=== PATIENT | female | born 1975 | race Caucasian/White ===

== ENCOUNTER 2017-02-01 15:16 | Emergency (ER) | payer SELFPAY ==
[~2017-02-01 15:16] MED LIST: ASPI81TA82 PO
[2017-02-01 15:23] VITALS: BP 147/99; PULSE 105; RESP 16; TEMP 99; O2SAT 95
--- NOTE | 2017-02-01 15:27 | PD ---
HPI Chief Complaint: Anxiety Time Seen by Provider: 15:21 Travel History International Travel<30 days: No Contact w/Intl Traveler<30days: No History of Present Illness HPI 41-year-old female with history of generalized anxiety disorder and panic attacks here with complaint of same. Patient has history of chronic anxiety and is supposed to take Prozac, Xanax. She stopped her Prozac 1 week ago, stating that it really wasn't helping. She sees Dr. Parker, who also prescribed her BuSpar. She states that she took one dose of this and didn't like the way it made her feel, slightly nauseous and therefore she stopped it. Patient notes significant recent psychosocial stressors in that her mother 1 week ago today. Patient is supposed to get her cremated ashes today. Approximately 1.5 hours prior to arrival patient became anxious, noting palpitations, sense of impending doom and that the world was closing in on her, similar to her previous anxiety attack. She took a dose of her Xanax, and drink 1 beer without improvement prompting ER visit. She called EMS, normal 12- lead, blood glucose en route, stable. PFSH Past Medical History Anxiety: Yes Cancer: No Cardiovascular Problems: No Cerebrovascular Accident: Yes (CVA) Diminished Hearing: No Genitourinary: No Implanted Vascular Access Dvce: No Musculoskeletal: No Neurologic: No Psychiatric: No Reproductive: No Respiratory: No : 1 Para: 1 Past Surgical History Ear Surgery: Yes (RIGHT A 5TH GRADE CHILD) Social History Alcohol Use: Yes (2-4 BEERS A NIGHT) Tobacco Use: Yes (1/2 PPD) Substance Use: No Allergies-Medications (Allergen,Severity, Reaction): Coded Allergies: No Known Allergies (Unverified , 03/20/16) Reported Meds & Prescriptions Reported Meds & Active Scripts Active Reported Aspir-81 (Aspirin) 81 Mg Tab 81 Mg PO ONCE Review of Systems Except as stated in HPI: all other systems reviewed are Neg Physical Exam Narrative GENERAL: Anxious tearful thin female SKIN: Focused skin assessment warm/dry. HEAD: Normocephalic. EYES: No scleral icterus. No injection or drainage. ENT Mucous membranes pink and moist. NECK: Supple CARDIOVASCULAR: Regular rate and rhythm. No murmur appreciated. RESPIRATORY: No accessory muscle use. Clear to auscultation. Breath sounds equal bilaterally. GASTROINTESTINAL: Abdomen soft, non-tender, nondistended. MUSCULOSKELETAL: No obvious deformities. No edema. NEUROLOGICAL: Awake and alert. Normal speech. PSYCHIATRIC: Anxious, tearful Data Data Orders Lorazepam Inj (Ativan Inj) (02/01/17 15:30) [facility] Medical Decision Making Medical Screen Exam Complete: Yes Emergency Medical Condition: Yes Medical Record Reviewed: Yes Differential Diagnosis 41-year-old female with history of generalized anxiety disorder and panic attack here with complaint of same. Symptoms likely acute on chronic due to her medication nonadherence and recent psychosocial stressors with the of her mother. Narrative Course Patient given 1 mg Ativan with improvement of her symptoms. She was reassured and encouraged to follow up with outpatient psychiatry and given resources for same. Encouraged to continue to take her Prozac, Xanax as prescribed. Grief counseling as discussed. Diagnosis Primary Impression: Panic attack Additional Impressions: Adjustment reaction Qualified Code: F43.22 - Adjustment disorder with anxious mood Anxiety Referrals: Devyn Parker MD call for appointment [facility] call for appointment Additional Instructions: Continue Prozac and Xanax as prescribed. Follow up with outpatient psychiatric resources and/or Dr. Parker as discussed. Consider grief/loss counseling. Med/Other Pt SpecificInfo: No Change to Meds Disposition: 01 DISCHARGE HOME Condition: Stable Lacey Shaver MD Feb 01, 2017 15:27
[2017-02-01] MEDS ORDERED: ALPR.25 PO (15:28)
[2017-02-01] MEDS ORDERED: TRAZ50TA12 PO (15:28)
[2017-02-01] MEDS ORDERED: LORazepam 2 MG/ML VIAL IV PUSH ONE (15:30)
== END 2017-02-01 16:09 | disposition home or self-care (01) ==
LOC: PHED 15:16
DX: F41.0 Panic disorder [episodic paroxysmal anxiety] (principal); F43.22 Adjustment disorder with anxiety; Z86.73 Personal history of transient ischemic attack (TIA), and cerebral infarction without residual deficits; F17.200 Nicotine dependence, unspecified, uncomplicated
CPT/HCPCS: 96374; 99284; J2060

== ENCOUNTER 2017-09-05 10:54 | Emergency (ER) | payer SELFPAY ==
[~2017-09-05] VITALS: Ht 190.5 cm; Wt 58.0 kg
[~2017-09-05 10:54] MED LIST changes: +ALPR.25 PO; -ASPI81TA82 PO; +TRAZ50TA12 PO
[2017-09-05 10:58] VITALS: BP 154/92; PULSE 138; RESP 20; TEMP 97.8; O2SAT 98
--- NOTE | 2017-09-05 11:31 | PD ---
HPI Chief Complaint: Cold / Flu Symptoms Time Seen by Provider: 11:22 Travel History International Travel<30 days: No Contact w/Intl Traveler<30days: No Traveled to known affect area: No History of Present Illness HPI Patient is complaining of cough, congestion, sore throat, subjective fevers ongoing for 4 days. Patient states the cough was nonproductive until today when she started coughing up some phlegm. Denies any known sick contacts. Denies anything making symptoms worse. Patient states when she woke today having a burning sensation in her throat and chest that has since improved. Denies any radiation of the pain. Patient will use [id number] cold and flu medication for symptomatic relief. Patient reports history of tachycardia secondary to her anxiety and stress. Patient states she has not taken Xanax for this however she is not does not take it regularly. Patient states she feels very stressed right now but denies any palpitations or chest pain. PFSH Past Medical History Anxiety: Yes Cancer: No Cardiovascular Problems: No Cerebrovascular Accident: Yes (CVA) Diminished Hearing: No Genitourinary: No Implanted Vascular Access Dvce: No Musculoskeletal: No Neurologic: No Psychiatric: No Reproductive: No Respiratory: No Tetanus Vaccination: Unknown Influenza Vaccination: No ?: Not : 1 Para: 1 Past Surgical History Ear Surgery: Yes (RIGHT A 5TH GRADE CHILD) Other Surgery: Yes Social History Alcohol Use: Yes (2-4 BEERS A NIGHT) Tobacco Use: Yes (1/2 PPD) Substance Use: No Allergies-Medications (Allergen,Severity, Reaction): Coded Allergies: No Known Allergies (Unverified Adverse Reaction, Unknown, 09/05/17) Reported Meds & Prescriptions Reported Meds & Active Scripts Active Prednisone 20 Mg Tab 20 Mg PO BID 4 Days Tessalon Perles (Benzonatate) 100 Mg Cap 200 Mg PO TID PRN Ventolin Hfa 18 GM Inh (Albuterol Sulfate) 90 Mcg/Act Aer 2 Puff INH Q4H PRN Reported Xanax (Alprazolam) 0.25 Mg Tab 0.25 Mg PO Q4H PRN Review of Systems Except as stated in HPI: all other systems reviewed are Neg Physical Exam Narrative GENERAL: Well-developed, well nourished, in no acute distress, and non-ill appearing. SKIN: Focused skin assessment warm and dry. HEAD: Atraumatic. Normocephalic. EYES: Pupils equal and round. EOMI. No scleral icterus. No injection or drainage. ENT: No nasal bleeding or discharge. Mucous membranes pink and moist. Tympanic membranes pearly mckeon bilaterally. Posterior pharynx mild erythematous without exudate. Uvula is midline. Reports tenderness frontal sinus bilaterally. Swallowing own saliva and speaking in full sentences without difficulty. NECK: Trachea midline. No JVD. No cervical lymphadenopathy. Supple. No nuclear rigidity. CARDIOVASCULAR: Tachycardia rate and regular rhythm. No murmur appreciated. RESPIRATORY: No accessory muscle use. No respiratory distress. Clear to auscultation. Breath sounds equal bilaterally. MUSCULOSKELETAL: No obvious deformities. No clubbing. No cyanosis. No edema. Full range of motion. NEUROLOGICAL: Awake and alert. No obvious cranial nerve deficits. Motor grossly within normal limits. Normal speech. PSYCHIATRIC: Appropriate mood and affect; insight and judgment normal. Data Data Last Documented VS Vital Signs Date Time Temp Pulse Resp B/P (MAP) Pulse Ox O2 Delivery O2 Flow Rate FiO2 09/05/17 12:50 98 20 112/74 (87) 96 09/05/17 10:58 97.8 Orders Orders Influenzae A/B Antigen (09/05/17 11:27) Group A Rapid Strep Screen (09/05/17 11:27) Chest, Single Ap (09/05/17 ) Electrocardiogram (09/05/17 ) Strep Culture (Group A) (09/05/17 11:30) Ed Discharge Order (09/05/17 12:27) [facility] Medical Decision Making Medical Screen Exam Complete: Yes Emergency Medical Condition: Yes Interpretation(s) EKG reviewed by Dr. Garcia shows sinus rhythm with ventricular rate of 102. No STEMI. Differential Diagnosis Influenza, strep pharyngitis, viral pharyngitis, pneumonia, arrhythmia, URI, viral syndrome, bronchitis Narrative Course Patients symptom complex of cough and congestion is consistent with viral URI. The patient is non-ill appearing and is in no respiratory distress and comfortable. The patient moves air well and oxygen saturations are normal. There is no clinical evidence to suggest pneumonia at this time. Plan of care and management were discussed with the patient who agreed with plan. The patient was instructed to follow up with their physician and instructed to return if worsens, progressively worsening shortness of breath or difficulty breathing, persistent fever, chest pains or discomfort, inability to keep medication or fluids down with or without vomiting, or as needed. Patient in no obvious distress upon re-evaluation. All pertinent laboratory/ Radiology result(s) discussed with patient. Patient was asked if they wanted to speak to my attending, which the patient did not wish to do at this time. Any questions/concerns in reference to patient diagnosis/condition discussed and clarified prior to patient's discharge. Reinforced sheer importance of close follow up with patient's primary physician or primary care clinic. Instructed patient to return to ED immediately, if symptoms return/worsen. Patient showed understanding of above instructions. Further instructions and recommendations were detailed in discharge paperwork. Patient ambulated without difficulty out of ED at discharge. Diagnosis Primary Impression: URI with cough and congestion Referrals: [facility] Patient Instructions: General Instructions, Upper Respiratory Infection (ED) Additional Instructions: Follow-up with your primary care physician in 3-5 days for reevaluation. Take all medication as prescribed. Complaining of non-caffeinated nonalcoholic fluids. Use [id number] Tylenol and/or ibuprofen as needed for pain and/ or fever. Return to the emergency department if symptoms get worse. Med/Other Pt SpecificInfo: Prescription(s) given Scripts Prednisone (Prednisone) 20 Mg Tab 20 MG PO BID for 4 Days, #8 TAB 0 Refills Prov: Jj Barraza MD 09/05/17 Benzonatate (Tessalon Perles) 100 Mg Cap 200 MG PO TID Y for COUGH, #30 CAP 0 Refills Prov: Jj Barraza MD 09/05/17 Albuterol 18 GM Inh (Ventolin Hfa 18 GM Inh) 90 Mcg/Act Aer 2 PUFF INH Q4H Y for COUGH, #1 INHALER 0 Refills Prov: Jj Barraza MD 09/05/17 Disposition: 01 DISCHARGE HOME Condition: Stable Omid Fu Sep 05, 2017 11:31
--- NOTE | 2017-09-05 12:01 | RADRPT ---
EXAM DATE/TIME: 09/05/2017 11:48 [place] COMPARISON: No previous studies available for comparison. INDICATIONS : Cough, sore throat. MEDICAL HISTORY : None. SURGICAL HISTORY : None. ENCOUNTER: Initial ACUITY: 4 - 6 days PAIN SCORE: 0/10 LOCATION: Bilateral chest FINDINGS: A single view of the chest demonstrates the lungs to be symmetrically aerated without evidence of mas s, infiltrate or effusion. The cardiomediastinal contours are unremarkable. Osseous structures are intact. A left nipple shadow is present. CONCLUSION: No acute disease. There is no evidence of pneumonia. Noel Worthington MD on September 05, 2017 at 11:57 Board Certified Radiologist. This report was verified electronically.
[2017-09-05] MEDS ORDERED: PRED20 PO (12:28)
[2017-09-05] MEDS ORDERED: VENTAER INH (12:28)
[2017-09-05] MEDS ORDERED: BENZ100 PO (12:28)
[2017-09-05 12:50] VITALS: BP 112/74
--- NOTE | 2017-09-06 14:47 | EKG ---
Date Performed: 09/05/2017 Time Performed: 12:14:01 PTAGE: 42 years EKG: Sinus tachycardia NONSPECIFIC ST & T-WAVE ABNORMALITY ABNORMAL RHYTHM ECG PREVIOUS TRACING : 03/20/2016 11.19 DOCTOR: Mitchell Israel Interpretating Date/Time 09/06/2017 14:45:24
== END 2017-09-05 13:02 | disposition home or self-care (01) ==
LOC: PHEFT 10:54
DX: J06.9 Acute upper respiratory infection, unspecified (principal); F17.200 Nicotine dependence, unspecified, uncomplicated; F41.9 Anxiety disorder, unspecified; R00.0 Tachycardia, unspecified
CPT/HCPCS: 71045; 87081; 87804; 87880; 93005; 99284

== ENCOUNTER 2018-02-08 08:51 | Emergency (ER) | payer SELFPAY ==
[~2018-02-08] VITALS: Ht 190.5 cm; Wt 55.0 kg
[~2018-02-08 08:51] MED LIST changes: +BENZ100 PO; +PRED20 PO; -TRAZ50TA12 PO; +VENTAER INH
[2018-02-08 08:55] VITALS: BP 159/96; PULSE 132; RESP 16; TEMP 97.9; O2SAT 96
[2018-02-08 09:07] VITALS: BP 106/87; PULSE 105; RESP 18; O2SAT 100
--- NOTE | 2018-02-08 09:08 | PD ---
HPI Chief Complaint: GI Complaint Time Seen by Provider: 08:58 Travel History International Travel<30 days: No Contact w/Intl Traveler<30days: No Traveled to known affect area: No History of Present Illness HPI 42-year-old female presents with lower abdominal pain that is intermittent and sharp. She states she is having bowel movements but over the past week they have been hard. She states no migration of the pain. She states she does have anxiety and is off her anxiety medication as well. She denies specific modifying factors. Location is lower. Quality is sharp. Severity is moderate. She denies other associated symptoms. PFSH Past Medical History Anxiety: Yes Cancer: No Cardiovascular Problems: No Cerebrovascular Accident: Yes (CVA) Diminished Hearing: No Genitourinary: No Implanted Vascular Access Dvce: No Musculoskeletal: No Neurologic: No Psychiatric: No Reproductive: No Respiratory: No ?: Not LMP: NISHANT : 1 Para: 1 Past Surgical History Ear Surgery: Yes (RIGHT A 5TH GRADE CHILD) Other Surgery: Yes Social History Alcohol Use: Yes (2-4 BEERS A NIGHT) Tobacco Use: Yes (1/2 PPD) Substance Use: No Allergies-Medications (Allergen,Severity, Reaction): Coded Allergies: No Known Allergies (Unverified Adverse Reaction, Unknown, 02/08/18) Reported Meds & Prescriptions Reported Meds & Active Scripts Active Macrobid (Nitrofurantoin Monoh/Nitrofur Macro) 100 Mg Cap 100 Mg PO BID 5 Days Review of Systems Except as stated in HPI: all other systems reviewed are Neg Physical Exam Narrative GENERAL: 42-year-old female in no apparent distress, anxious SKIN: Focused skin assessment warm/dry. HEAD: Atraumatic. Normocephalic. EYES: Pupils equal and round. No scleral icterus. No injection or drainage. ENT: No nasal bleeding or discharge. Mucous membranes pink and moist. NECK: Trachea midline. No JVD. CARDIOVASCULAR: Tachycardic rate and regular rhythm. No murmur appreciated. RESPIRATORY: No accessory muscle use. Clear to auscultation. Breath sounds equal bilaterally. GASTROINTESTINAL: Abdomen soft, tender to palpation to the lower abdomen without rebound or guarding, nondistended. MUSCULOSKELETAL: No obvious deformities. No clubbing. No cyanosis. NEUROLOGICAL: Awake and alert. Moves all extremities. Normal speech. Data Data Last Documented VS Vital Signs Date Time Temp Pulse Resp B/P (MAP) Pulse Ox O2 Delivery O2 Flow Rate FiO2 02/08/18 09:07 105 18 106/87 (93) 100 Room Air 02/08/18 08:55 97.9 Orders Orders Complete Blood Count With Diff (02/08/18 09:02) Comprehensive Metabolic Panel (02/08/18 09:02) Urinalysis - C+S If Indicated (02/08/18 09:02) Lipase (02/08/18 09:02) Ct Abd/Pel W Iv Contrast(Rout) (02/08/18 ) Iv Access Insert/Monitor (02/08/18 09:02) Oximetry (02/08/18 09:02) Ed Urine Pregnancytest Poc (02/08/18 09:02) Urine Culture (02/08/18 09:30) Iohexol 350 Inj (Omnipaque 350 Inj) (02/08/18 10:14) Ed Discharge Order (02/08/18 10:30) Labs Laboratory Tests Test 02/08/18 09:10 02/08/18 09:30 White Blood Count 5.2 TH/MM3 Red Blood Count 4.70 MIL/MM3 Hemoglobin 15.4 GM/DL Hematocrit 45.8 % Mean Corpuscular Volume 97.6 FL Mean Corpuscular Hemoglobin 32.8 PG Mean Corpuscular Hemoglobin Concent 33.7 % Red Cell Distribution Width 12.3 % Platelet Count 141 TH/MM3 Mean Platelet Volume 8.8 FL Neutrophils (%) (Auto) 58.1 % Lymphocytes (%) (Auto) 28.0 % Monocytes (%) (Auto) 9.4 % Eosinophils (%) (Auto) 3.3 % Basophils (%) (Auto) 1.2 % Neutrophils # (Auto) 3.0 TH/MM3 Lymphocytes # (Auto) 1.4 TH/MM3 Monocytes # (Auto) 0.5 TH/MM3 Eosinophils # (Auto) 0.2 TH/MM3 Basophils # (Auto) 0.1 TH/MM3 CBC Comment DIFF FINAL Differential Comment Blood Urea Nitrogen 4 MG/DL Creatinine 0.50 MG/DL Random Glucose 87 MG/DL Total Protein 8.7 GM/DL Albumin 4.3 GM/DL Calcium Level 9.4 MG/DL Alkaline Phosphatase 93 U/L Aspartate Amino Transf (AST/SGOT) 144 U/L Alanine Aminotransferase (ALT/SGPT) 130 U/L Total Bilirubin 0.8 MG/DL Sodium Level 137 MEQ/L Potassium Level 3.7 MEQ/L Chloride Level 98 MEQ/L Carbon Dioxide Level 25.0 MEQ/L Anion Gap 14 MEQ/L Estimat Glomerular Filtration Rate 134 ML/MIN Lipase 147 U/L Urine Collection Type CLEAN CATCH Urine Color YELLOW Urine Turbidity CLEAR Urine pH 6.0 Urine Specific [place] LESS/EQUAL 1.005 Urine Protein NEG mg/dL Urine Glucose (UA) NEG mg/dL Urine Ketones NEG mg/dL Urine Occult Blood NEG Urine Nitrite NEG Urine Bilirubin NEG Urine Urobilinogen 0.2 MG/DL Urine Leukocyte Esterase MOD Urine WBC 9-14 /hpf Urine WBC Clumps FEW Urine Squamous Epithelial Cells 6-8 /hpf Urine Bacteria MOD /hpf Microscopic Urinalysis Comment CULTURE INDICATED MDM Medical Decision Making Medical Screen Exam Complete: Yes Emergency Medical Condition: Yes Medical Record Reviewed: Yes (Past history confirmed) Interpretation(s) CBC & BMP Diagram 02/08/18 09:10 Total Protein 8.7 H, Albumin 4.3, Calcium Level 9.4, Alkaline Phosphatase 93, Aspartate Amino Transf (AST/SGOT) 144 H, Alanine Aminotransferase (ALT/SGPT) 130 H, Total Bilirubin 0.8 Last 24 hours Impressions Abdomen/Pelvis CT 02/08/18 0000 Signed Impressions: CONCLUSION: No acute abnormality is identified within the abdomen or pelvis. Differential Diagnosis Stone, pancreatitis, UTI, cyst, diverticulitis Narrative Course Will check blood work, urinalysis, test, CT scan abdominal pelvis and reevaluate ed workup with uti vs contamination, given lower abdominal pain will treat and follow culture, Patient denies any new complaints and states that they are feeling better. Patient happy with care, all questions answered. Patient knows that follow up is incumbent on them and to return to the emergency room immediately if new or worsening symptoms develop. Patient given strict return precautions, vitals reviewed and are normal, agrees to further workup as an outpatient. Diagnosis Primary Impression: Abdominal pain Qualified Codes: R10.9 - Unspecified abdominal pain Additional Impression: UTI (urinary tract infection) Qualified Codes: N39.0 - Urinary tract infection, site not specified Patient Instructions: General Instructions Additional Instructions: return as needed, follow with primary this week, tylenol as needed Med/Other Pt SpecificInfo: Prescription(s) given Scripts Nitrofurantoin Monohydrate Macrocrystals (Macrobid) 100 Mg Cap 100 MG PO BID for Infection for 5 Days, #10 CAP 0 Refills Prov: Kay Bentley MD 02/08/18 Disposition: 01 DISCHARGE HOME Condition: Stable Kay Bentley MD Feb 08, 2018 09:08
[2018-02-08 09:21] LABS: BASOPHIL # 0.1 TH/MM3 (0-0.2); BASOPHIL % 1.2 % (0.0-2.0); EOSINOPHIL # 0.2 TH/MM3 (0-0.4); EOSINOPHIL % 3.3 % (0.0-4.0); HEMATOCRIT 45.8 % (35.0-46.0); HEMOGLOBIN 15.4 GM/DL (11.6-15.3); LYMPHOCYTE # 1.4 TH/MM3 (1.0-4.8); MEAN CELL VOLUME 97.6 FL (80.0-100.0); MEAN CORPUSCULAR HEMOGLOBIN 32.8 PG (27.0-34.0); MEAN CORPUSCULAR HGB CONC 33.7 % (32.0-36.0); MEAN PLATELET VOLUME 8.8 FL (7.0-11.0); MONO % 9.4 % (0.0-8.0); MONOCYTE # 0.5 TH/MM3 (0-0.9); NEUT % 58.1 % (16.0-70.0); PLATELET COUNT 141 TH/MM3 (150-450); RED CELL DISTRIBUTION WIDTH 12.3 % (11.6-17.2); WHITE BLOOD COUNT 5.2 TH/MM3 (4.0-11.0)
[2018-02-08 09:44] LABS: BILIRUBIN, URINE NEG (NEG); BLOOD, URINE NEG (NEG); GLUCOSE,URINE NEG (NEG); KETONE, URINE NEG (NEG); NITRITE,URINE NEG (NEG); URINE COLOR YELLOW (YELLW/STRAW); URINE LEUKOCYTE ESTERASE MOD (NEG)
[2018-02-08 09:48] LABS: ALBUMIN 4.3 GM/DL (3.4-5.0); CALCIUM 9.4 MG/DL (8.5-10.1)
[2018-02-08 09:49] LABS: BLOOD UREA NITROGEN 4 MG/DL (7-18); GLUCOSE,RANDOM 87 MG/DL (74-106)
[2018-02-08 09:53] LABS: ALT (GPT) 130 U/L (10-53); AST (GOT) 144 U/L (15-37); GLOMERULAR FILTRATION RATE 134 ML/MIN (>89)
[2018-02-08 09:55] LABS: TOTAL BILIRUBIN ADULT 0.8 MG/DL (0.2-1.0); TOTAL PROTEIN 8.7 GM/DL (6.4-8.2)
[2018-02-08 09:56] LABS: ALKALINE PHOSPHATASE 93 U/L (45-117)
[2018-02-08 09:57] LABS: CHLORIDE 98 MEQ/L (98-107); SODIUM (NA) 137 MEQ/L (136-145)
[2018-02-08 10:05] LABS: WHITE BLOOD CELL CLUMPS FEW
[2018-02-08 10:06] LABS: BACTERIA, URINE MOD /hpf
[2018-02-08] MEDS ORDERED: IOHEXOL 350 MG/ML 10 ML VIAL (for RAD DIAG) IVCONTRAST ONE (10:14)
--- NOTE | 2018-02-08 10:20 | RADRPT ---
EXAM DATE: 02/08/2018 10:14 AM EDT AGE/SEX: 42 years / Female INDICATIONS: Lower abdominal pain for 2 weeks. Constipation. CLINICAL DATA: This is the patient's initial encounter. Patient reports that signs and symptoms have been present for 2 weeks and indicates a pain score of 4/10. MEDICAL/SURGICAL HISTORY: None. None. ORAL CONTRAST: No oral contrast ingested. RADIATION DOSE: 5.24 CTDI (mGy) COMPARISON: No prior exams available for comparison. TECHNIQUE: Multiple contiguous axial images were obtained through the abdomen and pelvis following b olus infusion of 89 ml Omnipaque 350 (iohexol) nonionic water-soluble contrast as a single exam dos e. No oral contrast ingested. Using automated exposure control and adjustment of the mA and/or kV ac cording to patient size, the radiation dose was kept as low as reasonably achievable to obtain optima l diagnostic quality images. FINDINGS: Lower chest: No acute abnormality is identified. Hepatobiliary: No focal liver lesion is identified. Hepatic vasculature demonstrates no abnormality. No calcified gallstones are present. Kidneys: No hydronephrosis, stone, or mass. Adrenal Glands: Within normal limits. Spleen: Within normal limits. Pancreas: Within normal limits. Vascular: The aorta is nonaneurysmal. Bowel/Mesentery: The stomach and small bowel demonstrate no abnormality. No acute colon abnormality i s seen. There is no free intraperitoneal air or fluid. Appendix is normal. Abdominal Wall: No hernia is visualized. Retroperitoneum: No lymphadenopathy. Bladder: No wall thickening or mass. Reproductive: Within normal limits. Inguinal: No lymphadenopathy or hernia. Musculoskeletal: No acute osseous abnormality is identified. CONCLUSION: No acute abnormality is identified within the abdomen or pelvis. Electronically signed by: Juan C Thompson MD 02/08/2018 10:18 AM EDT
[2018-02-08] MEDS ORDERED: MACR100C2 PO (10:25)
== END 2018-02-08 10:39 | disposition home or self-care (01) ==
LOC: PHED 08:51
DX: R10.30 Lower abdominal pain, unspecified (principal); N39.0 Urinary tract infection, site not specified; B96.20 Unspecified Escherichia coli [E. coli] as the cause of diseases classified elsewhere; R00.0 Tachycardia, unspecified; F41.9 Anxiety disorder, unspecified; F17.200 Nicotine dependence, unspecified, uncomplicated; Z86.73 Personal history of transient ischemic attack (TIA), and cerebral infarction without residual deficits
CPT/HCPCS: 74177; 80053; 81001; 83690; 84703; 85025; 87077; 87086; 87186; 99284; Q9967